=== PATIENT | female | born 1985 | race African-American/Black ===

== ENCOUNTER 2017-12-22 05:58 | Inpatient (IN) ==
[2017-12-22] MEDS ORDERED: BUTORPHANOL 2 MG/ML VIAL IV PRN (06:13)
[2017-12-22] MEDS ORDERED: MEPERIDINE 50 MG/1 ML VIAL IV PRN (06:13)
[2017-12-22] MEDS ORDERED: ONDANSETRON 4 MG/2 ML VIAL IV PRN (06:13)
[2017-12-22] MEDS ORDERED: FAMOTIDINE 20 MG/2 ML VIAL IV SCH (06:30)
[2017-12-22] MEDS ORDERED: OXYTOCIN/LR 20 UNIT/1,000 ML BAG IV SCH (06:30)
[2017-12-22] MEDS: LACTATED RINGERS 1,000 ML IV SCH ×3 (06:38→19:39)
[2017-12-22 07:25] LABS: Basophils % 0.5 % (0.0-0.8); Eosinophils # 0.1 10*3/uL (0.0-0.87); Eosinophils % 0.7 % (0.00-10.9); Hematocrit 33.6 VOL% (35.7-47.0); Immature Granulocytes Absolute 0.09 #; Lymphocytes # 1.3 10*3/uL (1.4-4.0); Lymphocytes % 15.3 % (21.3-54.2); Mean Corpuscular HGB Conc 32.7 GM/DL (32-36); Mean Corpuscular Hemoglobin 31 PG (27-34); Mean Corpuscular Volume 95.7 FL (87-102); Mean Platelet Volume 10.4 FL (9.6-12.0); Monocytes # 0.6 10*3/uL (0.11-0.8); Monocytes % 6.8 % (1.7-12.7); Neutrophils # 6.5 10*3/uL (1.4-7.4); Neutrophils % 75.7 % (38.7-73.9); Platelet Count 185 T/CUMM (130-400); Red Blood Count 3.51 MC/CUMM (3.8-5.5); Red Cell Distribution Width 13.9 % (9.3-17.3); White Blood Count 8.6 T/CUMM (4-12)
[2017-12-22 08:07] LABS: Albumin 2.5 G/DL (3.4-5.0); Bilirubin,Total 0.5 MG/DL (0.2-1.0); Calcium 8.4 MG/DL (8.5-10.1); Osmolality,Calculated 280.5 MOS/KG (273-304); Potassium 3.8 MMOL/L (3.5-5.1); Total Protein 6.4 G/DL (6.4-8.3)
[2017-12-22] MEDS ORDERED: FAMOTIDINE 20 MG/2 ML VIAL IV ONE (14:10)
[2017-12-22] MEDS ORDERED: diphenhydrAMINE 50 MG/1 ML VIAL IV PRN ×2 (14:10)
[2017-12-22] MEDS ORDERED: hydrOXYzine HCL 25 MG/1 ML VIAL IM PRN (14:10)
[2017-12-22] MEDS ORDERED: ePHEDrine 50 MG/ML AMP IV PRN (14:10)
[2017-12-22] MEDS ORDERED: ONDANSETRON 4 MG/2 ML VIAL IV ONE (14:10)
[2017-12-22] MEDS ORDERED: LACTATED RINGERS 1,000 ML IV ONE (14:10)
[2017-12-22] MEDS ORDERED: CITRIC ACID/SODIUM CITRATE 30 ML UDCUP PO ONE (14:10)
[2017-12-22] MEDS ORDERED: PROMETHAZINE 25 MG/1 ML VIAL IM ONE (14:10)
[2017-12-22] MEDS ORDERED: fentaNYL 2 MCG/ROPIV 0.2% EPID 150 ML EPIDURAL SCH (14:30)
[2017-12-22] MEDS ORDERED: BISACODYL 10 MG SUPP RECTAL PRN (21:45)
[2017-12-22] MEDS ORDERED: HYDROCORTISONE 2.5% RECTAL CREAM 30 GM TUBE TOP PRN (21:45)
[2017-12-22] MEDS ORDERED: LANOLIN 50% CREAM 0.3 OZ TUBE TOP PRN (21:45)
[2017-12-22] MEDS ORDERED: oxyCODONE/ACETAMINOPHEN 5-325 MG TABLET PO PRN (21:45)
[2017-12-22] MEDS ORDERED: WITCH HAZEL PADS 100/JAR TOP PRN (21:45)
[2017-12-22] MEDS ORDERED: ACETAMINOPHEN 325 MG TABLET PO PRN (21:45)
[2017-12-22] MEDS ORDERED: BENZOCAINE 20%/MENTHOL 0.5% SPRAY 56 GM CAN TOP PRN (21:45)
[2017-12-22] MEDS ORDERED: MEASLES/MUMPS/RUBELLA VACCINE 0.5 ML VIAL SUBCUT ONE (22:00)
[2017-12-22] MEDS ORDERED: RHO(D) IMMUNE GLOBULIN 300 MCG SYRINGE IM ONE (22:00)
[2017-12-22] MEDS ORDERED: DIPH/TET/ACEL PERT BOOSTER VACCINE 0.5 ML VIAL IM ONE (22:00)
[2017-12-23] MEDS: IBUPROFEN 800 MG TABLET PO PRN ×3 (01:41→18:57)
[2017-12-23 02:36] LABS: Basophils % 0.2 % (0.0-0.8); Eosinophils % 0.1 % (0.00-10.9); Hematocrit 27.2 VOL% (35.7-47.0); Hemoglobin 9.2 GM/DL (12.0-16.0); Immature Granulocytes % 0.7 %; Immature Granulocytes Absolute 0.09 #; Lymphocytes % 7.8 % (21.3-54.2); Mean Corpuscular HGB Conc 33.8 GM/DL (32-36); Mean Corpuscular Hemoglobin 32 PG (27-34); Mean Corpuscular Volume 94.1 FL (87-102); Mean Platelet Volume 10.4 FL (9.6-12.0); Monocytes # 0.9 10*3/uL (0.11-0.8); Monocytes % 7.1 % (1.7-12.7); Neutrophils % 84.1 % (38.7-73.9); Platelet Count 156 T/CUMM (130-400); Red Blood Count 2.89 MC/CUMM (3.8-5.5); White Blood Count 13.1 T/CUMM (4-12)
[2017-12-23] MEDS: oxyCODONE/ACETAMINOPHEN 5-325 MG TABLET PO PRN ×3 (05:54→18:56)
[2017-12-23] MEDS: DOCUSATE SODIUM 100 MG CAPSULE PO SCH ×2 (10:11→21:11)
[2017-12-24] MEDS: DOCUSATE SODIUM 100 MG CAPSULE PO SCH ×2 (09:30→20:53)
[2017-12-24] MEDS: IBUPROFEN 800 MG TABLET PO PRN ×2 (10:12→18:25)
[2017-12-24] MEDS: oxyCODONE/ACETAMINOPHEN 5-325 MG TABLET PO PRN ×2 (10:12→18:25)
[2017-12-24] MEDS: OXYBUTYNIN 5 MG TABLET PO SCH ×2 (16:10→20:52)
[2017-12-25 08:06] VITALS: BP 119/73
[2017-12-25] MEDS: OXYBUTYNIN 5 MG TABLET PO SCH (09:50)
[2017-12-25] MEDS: DOCUSATE SODIUM 100 MG CAPSULE PO SCH (09:51)
== END 2017-12-25 14:20 | disposition home or self-care (01) | DRG 774 ==
LOC: N.LDOUT 05:58 → N.LD 06:00 → N.OB 12-23 00:43
PROVIDERS: ADMIT Obstetrics & Gynecology; ATTEND Obstetrics & Gynecology